=== PATIENT | male | born 1995 | race American Indian/Alaskan Native ===

== ENCOUNTER 2018-11-14 06:48 | Emergency (ER) | payer OTHER ==
[2018-11-14] MEDS ORDERED: IBUPROFEN PO ONE (09:08)
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
[2018-11-15 18:27] VITALS: BP 139/89
== END 2018-11-14 09:34 | disposition home or self-care (01) ==
LOC: ED 06:48
DX: S40.011A Contusion of right shoulder, initial encounter (principal); F17.200 Nicotine dependence, unspecified, uncomplicated; Z88.1 Allergy status to other antibiotic agents; V49.9XXA Car occupant (driver) (passenger) injured in unspecified traffic accident, initial encounter; Y93.89 Activity, other specified; Y92.410 Unspecified street and highway as the place of occurrence of the external cause; Y99.8 Other external cause status
CPT/HCPCS: 99283